=== PATIENT | male | born 1975 | race Caucasian/White ===

== ENCOUNTER 2022-06-12 09:30 | Outpatient (CLI) | payer OTHER, SELFPAY ==
[2022-06-12 14:42] LABS: Chloride* 101 mmol/L (96-114); Sodium* 137 mmol/L (135-149)
[2022-06-12 14:45] LABS: Blood Urea Nitrogen* 20 mg/dL (5-24); Carbon Dioxide* 29 mmol/L (20-32); Cholesterol* 237 mg/dL (90-199); Estimated Glomerular Filt Rate 93 ml/min; Glucose* 88 mg/dL (60-115)
[2022-06-12 14:46] LABS: Calcium* 8.8 mg/dL (8.4-10.6); HDL Cholesterol* 48 mg/dL (>=40); LDL Cholesterol Calculated 162 mg/dL (<100); Triglycerides* 137 mg/dL (40-149)
== END 2022-06-12 09:31 | disposition home or self-care (01) ==
PROVIDERS: PCP Family Medicine; Visit Provider Family Medicine
DX: I10 Essential (primary) hypertension (principal); E78.5 Hyperlipidemia, unspecified
CPT/HCPCS: 80048; 80061

== ENCOUNTER 2023-03-04 14:53 | Outpatient (CLI) | payer OTHER, SELFPAY | END 2023-03-04 14:54 | disposition home or self-care (01) | PROVIDERS: PCP Family Medicine; Visit Provider Family Medicine | DX: Z01.818 Encounter for other preprocedural examination (principal); E78.5 Hyperlipidemia, unspecified; I10 Essential (primary) hypertension | CPT/HCPCS: 80048; 80061; 85025 ==

== ENCOUNTER 2023-09-02 11:39 | Outpatient (CLI) | payer OTHER, SELFPAY | END 2023-09-02 11:40 | disposition home or self-care (01) | LOC: FBOREF 11:39 | PROVIDERS: PCP Family Medicine; Visit Provider Family Medicine | DX: I10 Essential (primary) hypertension (principal) | CPT/HCPCS: 80048 ==

== ENCOUNTER 2024-08-25 15:34 | Outpatient (CLI) | payer BC, SELFPAY | END 2024-08-25 15:35 | disposition home or self-care (01) | PROVIDERS: PCP Family Medicine; Visit Provider Family Medicine | DX: E78.2 Mixed hyperlipidemia (principal); I10 Essential (primary) hypertension; Z12.5 Encounter for screening for malignant neoplasm of prostate | CPT/HCPCS: 80048; 80061; G0103 ==